=== PATIENT | male | born 1985 | race African-American/Black ===

== ENCOUNTER 2024-11-12 16:32 | Emergency (ER) | payer SELFPAY ==
[~2024-11-12] VITALS: Ht 172.7 cm; Wt 86.0 kg
[2024-11-12 16:44] VITALS: TEMP 36.9; O2SAT 98
[2024-11-12 17:31] VITALS: BP 112/66; PULSE 67; RESP 21; O2SAT 98
== END 2024-11-12 20:08 | disposition left against medical advice (07) ==
LOC: ER 16:32
DX: R00.2 Palpitations (principal)
CPT/HCPCS: 71045; 93005; 99283; A4606